=== PATIENT | male | born 1955 | race Caucasian/White ===

== ENCOUNTER 2023-01-02 18:38 | Emergency (ER) | payer MEDICARE ==
[2023-01-02 19:24] LABS: ESTIMATED GFR 52 mL/min (>60)
[2023-01-02] MEDS ORDERED: diazePAM 5 MG/ML MDV IV ONE (19:28)
[2023-01-02] MEDS ORDERED: Sodium Chloride 0.9% 1,000 ML IV ONE (19:31)
[2023-01-02] MEDS ORDERED: levETIRAcetam 1,000 MG in Sodium Chloride 0.9% 100 ML IV ONE (21:35)
[2023-01-02] MEDS ORDERED: levETIRAcetam 500 MG/5 ML SDV ONE (21:51)
[2023-01-02] MEDS ORDERED: levETIRAcetam 500 MG Tab PO ONE (22:56)
[2023-01-02] MEDS ORDERED: Ondansetron 4 MG/2 ML SDV IVPUSH ONE (23:11)
[2023-01-02] MEDS ORDERED: Ondansetron 4 MG/2 ML SDV ONE (23:29)
[2023-01-03] MEDS ORDERED: levETIRAcetam 500 MG Tab PO ONE (22:56)
== END 2023-01-02 23:30 ==
LOC: LB.ED 18:38
DX: G40.909 Epilepsy, unspecified, not intractable, without status epilepticus (principal); Z20.822 Contact with and (suspected) exposure to COVID-19
CPT/HCPCS: 36415; 70450; 80053; 80307; 81001; 82947; 83605; 84484; 85025; 85379; 85610; 88740; 93005; 96361; 96365; 96375; 96376; 99285-25; A0425; A0429; A9270-GY; J1953; J2405; J3360; J3490; J7030; U0002